=== PATIENT | male | born 1980 | race Caucasian/White ===

== ENCOUNTER 2023-09-04 08:30 | Outpatient (RCR) | payer BC, SELFPAY | END 2024-01-02 23:59 | disposition home or self-care (01) | PROVIDERS: PCP Family Medicine; Visit Provider Family Medicine | DX: R20.2 Paresthesia of skin (principal); Z51.89 Encounter for other specified aftercare | CPT/HCPCS: 97033; 97035; 97110; 97140; 97165; L3906; X5282 ==